=== PATIENT | female | born 1960 | race Caucasian/White ===

== ENCOUNTER 2022-11-08 17:49 | Emergency (ER) | payer SELFPAY ==
[2022-11-08 18:11] LABS: Bilirubin Negative (Negative); Blood, Urine Moderate (Negative); Clarity Cloudy (Clear); Glucose, Urine (Dipstick) Negative (Negative); Ketone, Urine Negative (Negative); Leukocyte Moderate (Negative); Nitrite Positive (Negative); Protein, Urine (Dipstick) 30 mg/dL (Neg-Trace); Urobilinogen 0.2 mg/dL (Less than 2); pH, Urine 6.5 (5.0-9.0)
[2022-11-08 18:16] LABS: CAUTI Indications for Culture Pelvic or flank pain
[2022-11-08 18:17] LABS: Bacteria/HPF 4+ HPF (None Seen); RBC/HPF 21-50 HPF (0-3); WBC/HPF 21-50 HPF (0-3)
[2022-11-08 18:18] LABS: Urine Culture Reflex Yes Yes
[2022-11-08] MEDS ORDERED: Cephalexin 250 MG CAP ONE (18:42)
[2022-11-08] MEDS ORDERED: cefTRIAXone (ROCEPHIN) 1 GM VIAL ONE (18:44)
[2022-11-08] MEDS ORDERED: Lidocaine 1% PF 5 ML VIAL ONE (18:44)
== END 2022-11-08 18:56 | disposition home or self-care (01) ==
LOC: BURERS 17:49
DX: N39.0 Urinary tract infection, site not specified (principal)
CPT/HCPCS: 81001; 87077; 87086; 87186; 96372; 99283; J0696

== ENCOUNTER 2023-10-02 19:11 | Emergency (ER) | payer OTHER ==
[2023-10-02] MEDS ORDERED: Ketorolac Tromethamine 30 MG (1 mL) VIAL ONE (19:31)
== END 2023-10-02 20:45 | disposition home or self-care (01) ==
LOC: BURERS 19:11
DX: K11.5 Sialolithiasis (principal)
CPT/HCPCS: 96372; J1885